=== PATIENT | male | born 1990 | race Caucasian/White ===

== ENCOUNTER 2016-08-09 00:25 | Emergency (ER) | payer SELFPAY ==
--- NOTE | 2016-08-09 00:37 | EDPRACDOC ---
- General Information Chief Complaint: Male Urogenital Problems Stated Complaint: PENILE BURNING AND DISCHARGE Time Seen by Provider: 08/09/16 00:29 Information Source: Patient Mode Of Arrival: Car Allergies/Adverse Reactions: Allergies Allergy/AdvReac Type Severity Reaction Status Date / Time amoxicillin Allergy Rash-Genera Verified 08/09/16 00:39 lized - History of Present Illness Onset: TODAY HPI: PT PRESENTS WITH PARTNER. 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 PT AND PARTNER HAVE BEEN SEXUALLY ACTIVE Symptom Onset: Reports: Gradual Urinary Pain Location: Reports: None Urinary Output: Normal Penile Discharge: Reports: Normal Pain Severity: None Pain Improves with: Reports: Nothing Relevent History of: Reports: Sexually Active, Known Exposure to STD Associated Signs & Symptoms: Reports: None ED Past Medical History - History Reviewed Yes Nurses notes reviewed and agree except as marked EDM Review of Systems - Review of Systems ROS Negative Except as Marked: Yes All systems reviewed and were negative except as marked - Physical Exam Constitutional: Alert (Awake), No apparent distress Oriented to: Time, Person, Place Last recorded Vital Signs: Oxygen Pulse Oxygen Saturation O2 Device Oxygen Flow Rate Fraction of Inspired Oxygen ( FIO2) - HEENT Head: Normal ( normocephalic) Eye Exam: Normal (PERRL, EOMI, Sclera white) Oropharynx: Normal (Pharynx:Moist without exudate,Gums-no swelling) Nose: No Symptoms Reported (septum midline) Neck: Normal (FROM, trachea at midline) - Respiratory/Cardiovascular Respiratory: Normal - CTA (BBS clear to auscultation without adventitious sounds ) Cardiovascular: Normal (RRR without murmur, gallop or rub) - GI Auscultation: Normal (NABS) Palpation: Normal (Soft,No rebound or guarding, non distended) Tenderness: Non tender Simon's Sign: Negative Rectal Exam: Deferred - Musculoskeletal Back: Normal (Non-Tender) Extremities: Normal (Normal tone, Pulses 2+ No cyanosis or edema, FROM) - Integumentary Skin: Normal, Warm, Dry Lymphatics: Normal (no adenopathy) - Neurologic Memory Impaired: Normal Motor Function: Normal (Normal tone, Pulses 2+ No cyanosis or edema, FROM) Cranial Nerve: Normal (CN II-X11 intact sensation, strength 5/5) Cerebellar: Normal Mood Description: Normal Perception: Normal ED Penile Problem Exam - Genitals Penile Assessment: Normal Penile Discharge: Normal Glans: Normal Foreskin: Normal Shaft: Normal Scrotum: Bilateral: Normal Epididymis: Bilateral: Normal Testicle: Bilateral: Normal - Differential Diagnosis Chlamydial, Gonococcal Decision Time to Discharge: 00:53 - Departure Disposition: Home Condition: Stable Final Diagnosis: STD (male) Instructions: Sexually Transmitted Diseases (ED), Condom Use (ED), Safe Sex (ED ) Education/Counseling Given To: Patient Education/Counseling Given Regarding: Diagnosis, Treatment, Prognosis, Follow Up Referrals: Rashaun Cortes II, MD [Staff Physician] - [facility] [NonSta] - One Week Additional Instructions: FOLLOW UP WITH PCP NEXT WEEK. YOU MAY WISH TO GO TO THE HEALTH DEPARTMENT AND BE TESTED FOR HIV AND HEPATITIS.
[2016-08-09 00:40] VITALS: TEMP 98.4
[2016-08-09 00:53] VITALS: BMI 20.7
[2016-08-09] MEDS ORDERED: CEFTRIAXONE 500 MG VIAL IM ONE (00:56)
[2016-08-09] MEDS ORDERED: AZITHROMYCIN 250 MG TAB PO ONE (00:56)
[2016-08-09] MEDS ORDERED: LIDOCAINE 1% 2 ML (METHYLPARABEN FREE) ONE (01:02)
[2016-08-09 01:35] VITALS: BP 123/80; PULSE 80
== END 2016-08-09 01:35 | disposition home or self-care (01) ==
LOC: ED 00:25
DX: A64 Unspecified sexually transmitted disease (principal)
CPT/HCPCS: 96372; 99283; J0696; J2001; J3490